=== PATIENT | female | born 1980 | race Caucasian/White ===

== ENCOUNTER 2022-10-31 10:27 | Day surgery (SDC) | payer OTHER ==
[~2022-10-31] VITALS: Ht 165.1 cm; Wt 88.5 kg
[2022-10-31] MEDS ORDERED: fentaNYL citrate 0.05 MG/ML VIAL ONE (13:30)
[2022-10-31] MEDS ORDERED: LIDOCAINE 2% 100 MG/5 ML UJET TP ONE ×2 (13:31→13:48)
[2022-10-31] MEDS ORDERED: fentaNYL citrate 0.05 MG/ML VIAL IM ONE (13:48)
== END 2022-10-31 14:45 | disposition home or self-care (01) ==
LOC: MDS 10:27 → MMU 10:58 → MDS 14:45
PROVIDERS: ATTEND Internal Medicine Gastroenterology
DX: K62.5 Hemorrhage of anus and rectum (principal); K64.9 Unspecified hemorrhoids
CPT/HCPCS: 45378; J3010